=== PATIENT | female | born 1980 | race Hispanic/Latino ===

== ENCOUNTER 2021-02-03 13:23 | Emergency (ER) | payer BC ==
[2021-02-03] MEDS ORDERED: HYDROcodone/Acetaminophen 5/325 mg Tablet ONE (15:13)
[2021-02-03 15:25] LABS: #Basophils 0.1 10x3/uL (0.0-0.2); #Monocytes 0.4 10x3/uL (0.0-1.1); #Neutrophils 6.9 10x3/uL (1.5-8.4); %Basophils 0.6 % (0.0-2.0); %Eosinophils 0.2 % (0.0-6.0); %Lymphocytes 14.4 % (18.0-47.0); %Monocytes 4.8 % (0.0-10.0); %Neutrophils 79.9 % (40.0-75.0); Hemoglobin 10.5 g/dL (12.0-15.5); Mean Corpuscular HGB CONC 30.9 g/dL (32.0-36.0); Mean Corpuscular Hemoglobin 29.3 pg (27.0-33.0); Mean Platelet Volume 9.8 fl (7.4-10.4); Platelet Count 263 10x3/uL (150-450); RBC Distribution Width 18.6 % (11.5-14.5); Red Blood Cell (RBC) Count 3.58 10x6/uL (3.90-5.03); White Blood Cell (WBC) Count 8.6 10x3/uL (3.5-10.5)
[2021-02-03 15:34] LABS: BHCG - Serum Negative (NEGATIVE); Pregs Control Background? CLEAR/WHITE (CLR/WHITE); Pregs Control Bar Appear? YES (CONTROL BAR)
== END 2021-02-03 17:07 | disposition home or self-care (01) ==
LOC: CSHERS 13:23
DX: N93.9 Abnormal uterine and vaginal bleeding, unspecified (principal); D50.9 Iron deficiency anemia, unspecified
CPT/HCPCS: 36415; 84703; 85025; 99284

== ENCOUNTER 2021-03-10 16:32 | Outpatient (CLI) | payer BC | END 2021-03-10 16:33 | disposition home or self-care (01) | LOC: CSHLAB 16:32 | PROVIDERS: ATTEND Student in an Organized Health Care Education/Training Program | DX: Z01.812 Encounter for preprocedural laboratory examination (principal); Z20.822 Contact with and (suspected) exposure to COVID-19 | CPT/HCPCS: 84703; 85027; 86850; 86900; 86901; U0003; U0005 ==

== ENCOUNTER 2021-03-15 08:26 | Day surgery (SDC) | payer BC ==
[2021-03-10 18:15] LABS: BHCG - Serum Negative (NEGATIVE); Pregs Control Background? CLEAR/WHITE (CLR/WHITE); Pregs Control Bar Appear? YES (CONTROL BAR)
[2021-03-10 18:17] LABS: Hemoglobin 7.9 g/dL (12.0-15.5); Mean Corpuscular HGB CONC 29.9 g/dL (32.0-36.0); Mean Corpuscular Hemoglobin 30.3 pg (27.0-33.0); Mean Corpuscular Volume 101.1 fl (81.6-98.3); Mean Platelet Volume 10.3 fl (7.4-10.4); Platelet Count 353 10x3/uL (150-450); RBC Distribution Width 14.9 % (11.5-14.5); Red Blood Cell (RBC) Count 2.61 10x6/uL (3.90-5.03); White Blood Cell (WBC) Count 7.1 10x3/uL (3.5-10.5)
[2021-03-11 17:11] LABS: SARS-CoV-2 PCR by NAA Not Detected (NotDetected)
[2021-03-15] MEDS ORDERED: Lidocaine 1% MPF 2 ML VIAL ONE (08:31)
[2021-03-15] MEDS ORDERED: Famotidine/PF 20 mg/2ml Vial ONE (08:31)
[2021-03-15] MEDS ORDERED: Gabapentin 300 MG CAP ONE (08:31)
[2021-03-15] MEDS ORDERED: CeleCOXIB 100 MG CAP ONE (08:31)
[2021-03-15] MEDS ORDERED: Lidocaine 2% Jelly 5 ML TUBE ONE (10:54)
[2021-03-15] MEDS ORDERED: Bupivacaine PF 0.5% 30 ML VIAL ONE (10:55)
[2021-03-15] MEDS ORDERED: EPINEPHrine 1 MG/ML AMP ONE (10:55)
[2021-03-15] MEDS ORDERED: PROPOFOL 20 ML ONE (10:56)
[2021-03-15] MEDS ORDERED: Fentanyl 100 MCG/2 ML VIAL ONE ×2 (10:57→14:58)
[2021-03-15] MEDS ORDERED: ceFAZolin 2 GM/Dextrose 50 ML IVPB ONE (11:09)
[2021-03-15] MEDS ORDERED: Dexamethasone 20 MG/5 ML VIAL ONE (11:49)
[2021-03-15] MEDS ORDERED: Glycopyrrolate 0.2 MG/ML 5 ML SYRINGE ONE (12:01)
[2021-03-15] MEDS ORDERED: ePHEDrine Sulfate 50 MG/10 ML VIAL ONE (12:06)
[2021-03-15] MEDS ORDERED: Tranexamic Acid 1,000 MG/10 ML VIAL ONE (12:11)
[2021-03-15] MEDS ORDERED: Ketorolac Tromethamine 30 MG/ML VIAL ONE (13:36)
[2021-03-15] MEDS ORDERED: Ondansetron PF 4 MG/2 ML Vial ONE (13:36)
[2021-03-15 14:20] LABS: Hemoglobin 8.4 g/dL (12.0-15.5)
[2021-03-15] MEDS ORDERED: HYDROcodone/Acetaminophen 5/325 mg Tablet ONE ×2 (14:51→17:09)
== END 2021-03-15 17:35 | disposition home or self-care (01) ==
LOC: CSHSDC 08:26
PROVIDERS: ATTEND Student in an Organized Health Care Education/Training Program
PROC: 0UT74ZZ Resection of Bilateral Fallopian Tubes, Percutaneous Endoscopic Approach (ICD-10-PCS; principal; 2021-03-15)
PROC: 0UT94ZZ Resection of Uterus, Percutaneous Endoscopic Approach (ICD-10-PCS; principal; 2021-03-15)
DX: D25.9 Leiomyoma of uterus, unspecified (principal); N80.0 Endometriosis of uterus; N73.6 Female pelvic peritoneal adhesions (postinfective); Z79.3 Long term (current) use of hormonal contraceptives; Z88.1 Allergy status to other antibiotic agents; Z98.51 Tubal ligation status; Z20.822 Contact with and (suspected) exposure to COVID-19
CPT/HCPCS: 84703; 85014; 85018; 85027; 86850; 86900; 86901; 88307; J0171; J0690; J1100; J1885; J2405; J2704; J3010; S0020; S0028; U0003; U0005